=== PATIENT | female | born 1985 | race Caucasian/White ===

== ENCOUNTER 2016-10-03 10:54 | Emergency (ER) | payer SELFPAY ==
--- NOTE | 2016-10-03 11:17 | Emergency Department Record ---
History of Present Illness - General Chief complaint: Hemorrhoids Stated complaint: RECTAL PAIN Time Seen by Provider: 10/03/16 11:16 Source: Patient Mode of Arrival: Ambulatory Limitations: No limitations - History of Present Illness Initial comments: The patient is here due to rectal pain for about a week. She believes she has a large hemorrhoid present which is causing the issue. The patient is 7 months but denies any AP, cramping, or vaginal bleeding. She states the baby is moving normally. MD complaint: Other Onset/Timin -: Days(s) Radiation: None Severity scale (1-10): 10 Quality: Burning Consistency: Constant Improves with: None Worsens with: Bowel movement, Movement Context: Hemorrhoids Treatments Prior to Arrival: Topical ointment - Related Data Home Medications Medication Instructions Recorded Confirmed Last Taken Pnv No.95/Ferrous Fum/Folic AC 1 tab PO DAILY 10/03/16 10/03/16 10/03/16 08:00 [ Formula Tablet] Allergies Allergy/AdvReac Type Severity Reaction Status Date / Time No Known Drug Allergies Allergy Verified 10/03/16 11:14 Travel Screening - Travel/Exposure Within Last 30 Days Have you traveled within the last 30 days?: No - Travel/Exposure Within Last Year Have you traveled outside the [place] in the last year?: No - Travel Symptoms Symptom Screening: Bleeding Review of Systems Constitutional: Denies: Chills, Fever Eyes: Denies: Eye discharge ENT: Denies: Congestion, Other Respiratory: Denies: Cough, Dyspnea Past Medical History - SOCIAL HISTORY Smoking Status: Current every day smoker Alcohol Use: None Drug Use: None - RESPIRATORY Hx Respiratory Disorders: No - CARDIOVASCULAR Hx Cardio Disorders: No - NEURO Hx Neuro Disorders: Yes Comment:: LUPUS - GI Hx GI Disorders: No - Hx Genitourinary Disorders: Yes Hx Kidney Stones: Yes Hx UTI: Yes - ENDOCRINE Hx Endocrine Disorders: No - MUSCULOSKELETAL Hx Musculoskeletal Disorders: Yes Comment:: LUPUS - PSYCH Hx Psych Problems: No - HEMATOLOGY/ONCOLOGY Hx Hematology/Oncology Disorders: No Hx Anemia: Yes Family Medical History Any Significant Family History?: No Physical Exam - General General Appearance: Alert, Oriented x3, Cooperative, No acute distress - Head Head exam: Atraumatic, Normocephalic, Normal inspection - Eye Eye exam: Normal appearance, PERRL - GI/Abdominal GI/Abdominal exam: Soft, Normal bowel sounds. negative: Rebound, Rigid, Tenderness - Rectal Rectal exam: Other (There is a large hemorrhoid present from the 3:00 to 6:00 position. It is partially thrombosed on one end and very soft and pink on the other.) Course Vital Signs 10/03/16 11:05 Temperature 98.5 F Pulse Rate 87 Respiratory 20 Rate Blood Pressure 116/63 Pulse Ox 95 - Reevaluation(s) Reevaluation #1: Due to the fact the patient is 7 months I did contact her OB group in [place]. I did speak with Brittany (OB nurse) who will expedite an appointment for today with the OB group and will call her in some medicine for the hemorrhoid. 10/03/16 11:33 10/03/16 11:59 Disposition Disposition: Discharge Clinical Impression: Hemorrhoid Qualifiers: Hemorrhoid type: other Qualified Code(s): K64.8 - Other hemorrhoids Disposition: Home, Self-Care Condition: (1) Good Instructions: Hemorrhoids (ED) Additional Instructions: Please see your OB doctor MAYRA for this problem. Forms: Patient Portal Access Time of Disposition: 11:36 Quality - Quality Measures Quality Measures: N/A - Blood Pressure Screening View Details: Yes Blood Pressure Classification: Normal BP Reading Systolic Measurement: 116 Diastolic Measurement: 63 Screening for High Blood Pressure: < Normal BP, F/U Not Required > [G8783] Normal BP Follow-up Interventions: No follow-up required
== END 2016-10-03 11:55 | disposition home or self-care (01) ==
LOC: ER 10:54
DX: O22.43 Hemorrhoids in pregnancy, third trimester (principal)
CPT/HCPCS: 99283

== ENCOUNTER 2017-06-27 21:12 | Emergency (ER) | payer SELFPAY ==
[2017-06-27] MEDS ORDERED: CLINDAMYCIN 150 MG CAP PO ONE (21:25)
--- NOTE | 2017-06-27 21:25 | Emergency Department Record ---
History of Present Illness - General Chief complaint: Dental Stated complaint: DENTAL PAIN Time Seen by Provider: 06/27/17 21:20 Source: Patient Mode of Arrival: Ambulatory Limitations: No limitations - History of Present Illness Initial comments: 31 yo female presents to ED for evaluation of right lower dental pain that began 2-3 days ago, reports that woke up this morning with swelling to the lateral lower mandible. Patient reports that she did call her dentist for an appointment next week, but was concerned that she may need an antibiotic for her swelling symptoms. Patient denies health problems at her baseline. MD complaint: Tooth pain Onset/Timin -: Days(s) Location: Tooth # 1 - Several dental caries present Severity: Moderate Quality: Aching Consistency: Constant Improves with: None Worsens with: None Context- Dental: History of dental caries - Related Data Previous Rx's Medication Instructions Recorded Clindamycin HCl 300 mg PO Q6H #27 capsule 06/27/17 Allergies Allergy/AdvReac Type Severity Reaction Status Date / Time No Known Drug Allergies Allergy Verified 10/03/16 11:14 Review of Systems Constitutional: Denies: Chills, Fever, Malaise, Night sweats Eyes: Denies: Eye discharge, Eye pain ENT: Reports: Dental pain. Denies: Congestion, Ear pain Respiratory: Denies: Cough, Dyspnea Cardiovascular: Denies: Chest pain, Dyspnea on exertion Endocrine: Denies: Fatigue, Heat or cold intolerance Gastrointestinal: Denies: Abdominal pain, Nausea, Vomiting Genitourinary: Denies: Incontinence, Retention Musculoskeletal: Denies: Arthralgia, Back pain Skin: Denies: Bruising, Change in color Neurological: Denies: Abnormal gait, Confusion, Headache, Seizure Psychiatric: Denies: Anxiety Hematological/Lymphatic: Denies: Anemia, Blood Clots Past Medical History - SOCIAL HISTORY Smoking Status: Current every day smoker Drug Use: None - RESPIRATORY Hx Respiratory Disorders: No - CARDIOVASCULAR Hx Cardio Disorders: No - NEURO Hx Neuro Disorders: Yes Comment:: LUPUS - GI Hx GI Disorders: No - Hx Genitourinary Disorders: Yes Hx Kidney Stones: Yes Hx UTI: Yes - ENDOCRINE Hx Endocrine Disorders: No - MUSCULOSKELETAL Hx Musculoskeletal Disorders: Yes Comment:: LUPUS - PSYCH Hx Psych Problems: No - HEMATOLOGY/ONCOLOGY Hx Hematology/Oncology Disorders: No Hx Anemia: Yes Physical Exam - General General Appearance: Alert, Oriented x3, Cooperative, Moderate distress Limitations: No limitations - Head Head exam: Atraumatic, Normocephalic, Normal inspection Head exam detail: negative: Abrasion, Contusion, Trimble's sign, General tenderness, Hematoma, Laceration - Eye Eye exam: Normal appearance. negative: Conjunctival injection, Periorbital swelling, Periorbital tenderness, Scleral icterus - ENT Ear exam: negative: Auricular hematoma, Auricular trauma Nasal Exam: negative: Active bleeding, Discharge, Dried blood, Foreign body Mouth exam: negative: Drooling, Laceration, Muffled voice, Tongue elevation Teeth exam: Dental caries, Dental tenderness #, Other Throat exam: negative: Tonsillar erythema, R peritonsillar mass, L peritonsillar mass Image of Mouth/Teeth: 1 - Numerous dental caries present - Neck Neck exam: Normal inspection. negative: Meningismus, Tenderness - Respiratory Respiratory exam: Normal lung sounds bilaterally. negative: Rales, Respiratory distress, Rhonchi, Stridor - Cardiovascular Cardiovascular Exam: Regular rate, Normal rhythm, Normal heart sounds - GI/Abdominal GI/Abdominal exam: Soft. negative: Rebound, Rigid, Tenderness - Rectal Rectal exam: Deferred - exam: Deferred - Extremities Extremities exam: Normal inspection. negative: Pedal edema, Tenderness - Back Back exam: Denies: CVA tenderness (R), CVA tenderness (L) - Neurological Neurological exam: Alert, Normal gait, Oriented X3 - Psychiatric Psychiatric exam: Normal affect, Normal mood - Skin Skin exam: Normal color. negative: Abrasion Type of lesion: negative: abrasion Course Vital Signs 06/27/17 21:16 Temperature 98.7 F Pulse Rate [ 80 Pulse Ox Probe] Respiratory 20 Rate Blood Pressure 121/76 [Left Arm] Pulse Ox 100 - Reevaluation(s) Reevaluation #1: 06/27/17 21:33 Patient was seen and examined, dental block was performed to improve her pain symptoms. Patient was started on Clindamycin as well for probable dental infection, appears stable for discharge at this time. Reevaluation #2: 06/27/17 21:39 Patient reassessed, reports improvment in her pain symptoms following dental block. Patient appears stable for discharge at this time. Procedures - Nerve Block Consent Obtained: Verbal consent Time Out Performed: Yes Local Anesthetic Used: Marcaine 0.25% Amount of anesthesia used: 1.5 Side: Right Intraoral Nerve Block: Inferior alveolar Procedure Successful: Yes Complications: None Patient Tolerated Procedure: Good Disposition Disposition: Discharge Clinical Impression: Dental caries Disposition: Home, Self-Care Condition: (2) Stable Instructions: Dental Abscess (ED) Additional Instructions: Return to ED if your symptoms worsen or if you have any concerns Clindamycin as directed. Follow-up as scheduled with your dentist as scheduled with next week. Prescriptions: Clindamycin HCl 300 mg PO Q6H #27 capsule Forms: Patient Portal Access Time of Disposition: 21:24 Quality - Quality Measures Quality Measures: N/A - Blood Pressure Screening Does Patient Have Any of the Following: No Blood Pressure Classification: Pre-Hypertensive BP Reading Systolic Measurement: 121 Diastolic Measurement: 76 Screening for High Blood Pressure: < Pre-Hypertensive BP, F/U Documented > [ G8950] Pre-Hypertensive Follow-up Interventions: Referral to alternative/primary care provider.
== END 2017-06-27 21:44 | disposition home or self-care (01) ==
LOC: ER 21:12
DX: K02.9 Dental caries, unspecified (principal); F17.210 Nicotine dependence, cigarettes, uncomplicated
CPT/HCPCS: 64400; 99283

== ENCOUNTER 2017-07-22 09:40 | Emergency (ER) | payer SELFPAY ==
[2017-07-22] MEDS ORDERED: ONDANSETRON HCL IV 4 MG/2 ML VIAL IVP ONE (09:55)
[2017-07-22] MEDS ORDERED: 0.9 % SODIUM CHLORIDE 1,000 ML BAG IV ONE (09:55)
[2017-07-22] MEDS ORDERED: ACETAMINOPHEN 1,000 MG/100 ML BTL IVPB ONE (09:55)
[2017-07-22] MEDS ORDERED: KETOROLAC 30 MG/ML VIAL IVP ONE (09:56)
--- NOTE | 2017-07-22 09:57 | Emergency Department Record ---
History of Present Illness - General Chief complaint: Female Urogenital Problem Stated complaint: KIDNEY PAIN Time Seen by Provider: 07/22/17 09:47 Source: Patient Mode of Arrival: Ambulatory Limitations: No limitations - History of Present Illness Initial comments: 32 yo female presents with right flank pain that started this morning at 4: 30am. The pain was sudden onset. The pain is sharp. She has associated nausea and vomiting. No diarrhea. No fevers. No dysuria. She has had renal stones in the past. No symptoms in the last several weeks prior to this AM. She has passed all prior stones. NO abdominal pain currently as the pain is in the back/flank. No vaginal bleeding or discharge. Cycles have been regular. NO pelvic pain. MD Complaint: Other (Right flank pain) Onset/Timin -: Hour(s) Radiation: R flank Severity: Severe Severity scale (1-10): 10 Quality: Sharp Consistency: Constant Improves with: None Worsens with: Urination Patient : No Associated Symptoms: Nausea/vomiting - Related Data Sexually active: No Previous Rx's Medication Instructions Recorded Cephalexin [Keflex] 500 mg PO QID #40 cap 07/22/17 Hydrocodone/Acetaminophen [[place] 1 tab PO Q8H PRN #9 tab 07/22/17 5mg/325mg] Ondansetron [Zofran Odt] 4 mg PO Q8H #20 tab.rapdis 07/22/17 Allergies Allergy/AdvReac Type Severity Reaction Status Date / Time No Known Drug Allergies Allergy Verified 10/03/16 11:14 Travel Screening - Travel/Exposure Within Last 30 Days Have you traveled within the last 30 days?: No Review of Systems Constitutional: Denies: Chills, Fever, Malaise, Weakness Eyes: Denies: Eye discharge ENT: Denies: Congestion, Throat pain Respiratory: Denies: Cough, Dyspnea, Hemoptysis, Stridor, Wheezes Cardiovascular: Denies: Chest pain, Palpitations, Syncope Endocrine: Denies: Fatigue Gastrointestinal: Reports: Nausea, Vomiting. Denies: Abdominal pain, Constipation, Diarrhea, Hematemesis, Hematochezia, Melena Genitourinary: Denies: Dysuria, Hematuria Musculoskeletal: Reports: Back pain. Denies: Arthralgia, Joint swelling, Myalgia, Neck pain Skin: Denies: Bruising, Change in color, Rash Neurological: Denies: Headache, Numbness, Weakness Psychiatric: Denies: Anxiety Hematological/Lymphatic: Denies: Easy bleeding, Easy bruising, Swollen glands Past Medical History - SOCIAL HISTORY Smoking Status: Former smoker Alcohol Use: None Drug Use: None - RESPIRATORY Hx Respiratory Disorders: No - CARDIOVASCULAR Hx Cardio Disorders: No - NEURO Hx Neuro Disorders: Yes Comment:: LUPUS - GI Hx GI Disorders: No - Hx Genitourinary Disorders: Yes Hx Kidney Stones: Yes Hx UTI: Yes - ENDOCRINE Hx Endocrine Disorders: No - MUSCULOSKELETAL Hx Musculoskeletal Disorders: Yes Comment:: LUPUS - PSYCH Hx Psych Problems: No - HEMATOLOGY/ONCOLOGY Hx Hematology/Oncology Disorders: Yes Hx Anemia: Yes Family Medical History Any Significant Family History?: No Physical Exam - General General Appearance: Alert, Oriented x3, Cooperative, No acute distress Limitations: No limitations - Head Head exam: Normal inspection - Eye Eye exam: Normal appearance, PERRL. negative: Conjunctival injection, Scleral icterus - ENT ENT exam: Normal exam, Mucous membranes moist Ear exam: Normal external inspection Nasal Exam: Normal inspection Mouth exam: Normal external inspection Teeth exam: Normal inspection Throat exam: Normal inspection - Neck Neck exam: Normal inspection, Full ROM. negative: Tenderness - Respiratory Respiratory exam: Normal lung sounds bilaterally. negative: Respiratory distress - Cardiovascular Cardiovascular Exam: Regular rate, Normal rhythm, Normal heart sounds - GI/Abdominal GI/Abdominal exam: Soft. negative: Distended, Guarding, Rebound, Rigid, Tenderness - Rectal Rectal exam: Deferred - exam: Deferred - Extremities Extremities exam: Normal inspection, Full ROM, Normal capillary refill. negative: Tenderness - Back Back exam: Reports: Normal inspection, CVA tenderness (R), Full ROM, Tenderness. Denies: CVA tenderness (L) - Neurological Neurological exam: Alert, Normal gait, Oriented X3 - Psychiatric Psychiatric exam: Normal affect, Normal mood - Skin Skin exam: Dry, Intact, Normal color, Warm Course Vital Signs 07/22/17 09:42 Temperature 98.7 F Pulse Rate 95 H Respiratory 20 Rate Blood Pressure 99/50 Pulse Ox 99 - Reevaluation(s) Reevaluation #1: 07/22/17 10:57 The labs were reviewed The WBC is 13 The UA is consistent with UTI The UCG is POSITIVE. Quant ordered CT changed to US. 07/22/17 11:32 The Quant is 250 The patient is not having any pelvic pain, no discharge, no vaginal bleeding. Her pain is isolated to the the right flank. Low suspicion of ectopic given no current or historic pelvic symptoms. She confirms she has not been irregular and her last period last week was normal without atypical features. 07/22/17 13:14 The renal US is negative. No hydo. 07/22/17 13:42 The OB US was negative for IUP. Small right cyst likely corpus luteal. No IUP expected given Quant 230. Low suspicion for ectopic but still possible. The patient was made aware of the need to see her doctors at the [facility] in [place] for a recheck HCG and check for this early and to follow up the culture. I explained this could be a miscarriage, normal or ectopic. I explained the rational for 48-72 hour recheck HCG 07/22/17 14:37 Medical Decision Making - Lab Data Result diagrams: 07/22/17 10:10 07/22/17 10:10 Disposition Disposition: Discharge Clinical Impression: Pyelonephritis, Disposition: Home, Self-Care Condition: (1) Good Instructions: (ED), Urinary Tract Infection in Women (ED), Kidney Infection (ED) Additional Instructions: Rest and stay well hydrated Take the antibiotics as directed Return if you have fever, uncontrolled pain, or any new concerns. You have a culture of the urine that will be available in about 2 days Call the [facility] to be seen this week to recheck your hormone level. Prescriptions: Cephalexin [Keflex] 500 mg PO QID #40 cap Hydrocodone/Acetaminophen [[place] 5mg/325mg] 1 tab PO Q8H PRN #9 tab PRN Reason: Pain - General Ondansetron [Zofran Odt] 4 mg PO Q8H #20 tab.rapdis Forms: Patient Portal Access Time of Disposition: 13:18 Quality - Quality Measures Quality Measures: N/A - Blood Pressure Screening Does Patient Have Any of the Following: No Blood Pressure Classification: Normal BP Reading Systolic Measurement: 95 Diastolic Measurement: 55 Screening for High Blood Pressure: < Normal BP, F/U Not Required > [G8783]
[2017-07-22 10:17] LABS: HEMATOCRIT 40.5 % (35.0-47.0); HEMOGLOBIN 13.1 gm/dl (11.6-16.0); MEAN CELL VOLUME 91.8 fl (81-97); MEAN CORPUSCULAR HEMOGLOBIN 29.7 pg (27-33); MEAN CORPUSCULAR HGB CONC 32.3 g/dl (32-36); MEAN PLATELET VOLUME 9.1 fl (7.4-10.4); PLATELET COUNT 251 K/uL (130-400); RED BLOOD COUNT 4.41 M/uL (3.80-5.40); RED CELL DISTRIBUTION WIDTH 13.6 % (11.5-14.5)
[2017-07-22 10:27] LABS: PLATELET ESTIMATE NORMAL (NORMAL)
[2017-07-22 10:43] LABS: ALB/GLOB RATIO 1.4 (1.1-1.8); ALBUMIN 3.8 g/dL (4.0-5.0); ALKALINE PHOSPHATASE 67 U/L (35-104); ALT/SGPT 11 U/L (<33); AST/SGOT 12 U/L (10.0-35.0); BLOOD UREA NITROGEN 11 mg/dL (6-20); CREATININE 0.6 mg/dL (0.5-0.9); EST GLOMERULAR FILTRATION RATE > 60 mL/min; GLUCOSE,RANDOM 128 mg/dL (74-109); TOTAL PROTEIN 6.6 g/dL (6.6-8.7)
[2017-07-22 10:45] LABS: URINE APPEARANCE SL CLOUDY; URINE BILIRUBIN NEGATIVE (NEGATIVE); URINE BLOOD MODERATE (NEGATIVE); URINE COLOR YELLOW; URINE GLUCOSE (UA) NEGATIVE (NEGATIVE); URINE KETONE NEGATIVE (NEGATIVE); URINE LEUKOCYTE ESTERASE SMALL (NEGATIVE); URINE NITRITE POSITIVE (NEGATIVE); URINE PROTEIN NEGATIVE (NEGATIVE); URINE UROBILINOGEN 0.2 E.U./dL (0.20 - 1.00)
[2017-07-22 10:49] LABS: HCG,QUALITATIVE URINE POSITIVE (NEGATIVE); URINE BACTERIA 4+; URINE EPITHELIAL CELLS 0 - 2 (FEW); URINE WBC 16 - 20 (0-2/hpf)
[2017-07-22] MEDS ORDERED: CEFTRIAXONE SODIUM 1 GM in 0.9 % SODIUM CHLORIDE 100ML 100 ML IVPB ONE (10:53)
[2017-07-22] MEDS ORDERED: MORPHINE SULFATE 4MG/ML PREFILLED SYRINGE IVP ONE (10:56)
--- NOTE | 2017-07-24 08:39 | ULTRASOUND REPORT ---
EXAM: RENAL/RETROPERITONEAL ULTRASOUND HISTORY: POSITIVE TEST, FLANK PAIN. TECHNIQUE: Real-time ultrasound examination of the kidneys was performed. The bladder was included in the obstetrical ultrasound from today as well. Comparison: No prior renal ultrasound. FINDINGS: The right kidney measures about 11.9 cm in length and the left kidney measures about 11.3 cm in length. No hydronephrosis identified in either kidney. No definite abnormality of either kidney identified. IMPRESSION: THE KIDNEYS APPEAR ESSENTIALLY NEGATIVE BILATERALLY WITH NO DEFINITE HYDRONEPHROSIS IDENTIFIED. JOB NUMBER: [id number] [facility]
--- NOTE | 2017-07-24 09:12 | ULTRASOUND REPORT ---
EXAM: FIRST TRIMESTER EMERGENCY ULTRASOUND HISTORY: RIGHT FLANK PAIN, NEW DIAGNOSIS OF . TECHNIQUE: Real-time ultrasound examination of the pelvis was performed utilizing transabdominal and transvaginal. Because of pain, Doppler ultrasound was performed with color flow and spectral analysis. Comparison: None. FINDINGS: TRANSABDOMINAL OB ULTRASOUND: The uterus is identified measuring about 4.1 cm in AP x 5.7 cm in transverse diameters x 8.3 cm in length. No intrauterine fluid collection identified and in particular no recognizable intrauterine gestational sac, pole, or yolk sac evident. On the longitudinal image the endometrial stripe measures about 6 mm in thickness. The left ovary is identified measuring about 3.6 cm in size and demonstrating arterial and venous flow with color flow and spectral analysis Doppler. The right ovary is identified measuring 4.3 cm in size and also demonstrating flow with arterial and venous Doppler ultrasound. No definite adnexal mass seen on either side on the transabdominal approach and no free fluid evident. The urinary bladder was also briefly evaluated at the time of the transabdominal approach. The prevoid bladder volume was about 227 ml. Mild diffuse thick walled appearance of the bladder may simply be due to incomplete distention. There do appear to be some low amplitude echoes within the urinary bladder which is nonspecific. No focal bladder wall abnormality identified. No post void images were obtained. TRANSVAGINAL OB ULTRASOUND: Because no recognizable intrauterine fetus was seen on the transabdominal approach, transvaginal study was also performed. There are a couple tiny cervical nabothian cysts less than 1 cm in size. A very tiny amount of free fluid in the pelvis in the cul-de-sac may simply be physiologic in nature. The endometrial stripe measured about 5.3 mm in thickness, within normal limits. Again, no recognizable intrauterine gestational sac, pole, or yolk sac evident. The left ovary is identified measuring 2.6 cm in size and demonstrating arterial and venous flow with color flow and spectral analysis Doppler. The right ovary is identified measuring about 4.6 cm in size and is dominated by a cyst measuring about 3.2 cm in size. This is nonspecific although may be a corpus luteum cyst. Arterial and venous flow evident in the right ovary as well with color flow and spectral analysis Doppler. Findings are nonspecific at this point. There is no history of bleeding to indicate incomplete spontaneous . This may just represent a very early not yet sonographically visible, however, with the history of a positive test and lack of demonstration of an IUP, ectopic cannot absolutely be excluded. Consequently close clinical follow-up is suggested, perhaps with quantitative serum HCG determinations, and if the patient remains clinically and stable, follow-up transvaginal ultrasound in a week or so may be useful to reassess. IMPRESSION: 1. NO INTRAUTERINE GESTATIONAL SAC IDENTIFIED. 2. SMALL CERVICAL NABOTHIAN CYSTS. 3. APPROXIMATELY 3.2 CM CYST RIGHT OVARY, NONSPECIFIC, ALTHOUGH PERHAPS A CORPUS LUTEUM CYST. 4. TINY AMOUNT OF FREE FLUID MAY SIMPLY BE PHYSIOLOGIC. 5. FINDINGS ARE NONSPECIFIC AND FURTHER EVALUATION DESCRIBED ABOVE SUGGESTED. JOB NUMBER: [id number]
== END 2017-07-22 13:55 | disposition home or self-care (01) ==
LOC: ER 09:40
DX: O23.01 Infections of kidney in pregnancy, first trimester (principal); R11.2 Nausea with vomiting, unspecified; Z87.891 Personal history of nicotine dependence
CPT/HCPCS: 99284 ×2; 96365; 96375; 84702; 80053; 81001; 81025; 85027; 76775; 76817; 76801; J1885; J2405; J2274; J7030

== ENCOUNTER 2017-08-16 11:16 | Emergency (ER) | payer SELFPAY ==
[2017-08-16] MEDS ORDERED: 0.9 % SODIUM CHLORIDE 1,000 ML BAG IV ONE (11:25)
[2017-08-16] MEDS ORDERED: ONDANSETRON HCL IV 4 MG/2 ML VIAL IVP ONE (11:25)
--- NOTE | 2017-08-16 11:30 | Emergency Department Record ---
History of Present Illness - General Chief complaint: Weakness Stated complaint: STOMACH ACHE/DEHYDRATED Time Seen by Provider: 08/16/17 11:24 Source: Patient Mode of Arrival: Ambulatory Limitations: No limitations - History of Present Illness Initial comments: 32 yo female presents with one week of feeling weak, nausea, dizziness, decreased appetite. No fevers or chills. No vomiting but nausea. She is trying to drink fluids but food is not appetizing. No abdominal pain. She has had her gall bladder removed. No cough or chest pain. No dysuria. She reports she has had episodes like this several times in the past. MD Complaint: Generalized weakness -: Days(s) (5) Location: Generalized Severity: Moderate Quality: Other Consistency: Constant Improves with: None Worsens with: Other (Eating) Context: History of similar Associated Symptoms: Loss of appetite - Ajo Coma Scale Eye Response: (4) Open spontaneously Motor Response: (6) Obeys commands Verbal Response: (5) Oriented Ajo Total: 15 - Related Data Previous Rx's Medication Instructions Recorded Hydrocodone/Acetaminophen [Bruce 1 tab PO Q8H PRN #9 tab 07/22/17 5mg/325mg] Cephalexin [Keflex] 500 mg PO QID #28 cap 08/16/17 Ondansetron [Zofran Odt] 4 mg PO Q8H #10 tab.rapdis 08/16/17 Allergies Allergy/AdvReac Type Severity Reaction Status Date / Time No Known Drug Allergies Allergy Verified 08/16/17 11:28 Review of Systems Constitutional: Reports: Malaise, Weakness. Denies: Chills, Fever Eyes: Denies: Eye discharge, Eye pain, Photophobia, Vision change ENT: Denies: Congestion, Epistaxis, Throat pain Respiratory: Denies: Cough, Dyspnea, Hemoptysis, Wheezes Cardiovascular: Denies: Chest pain, Edema, Palpitations, Syncope Endocrine: Reports: Fatigue Gastrointestinal: Reports: Nausea. Denies: Abdominal pain, Constipation, Diarrhea, Hematemesis, Hematochezia, Melena, Vomiting Genitourinary: Denies: Dysuria, Urgency Musculoskeletal: Denies: Arthralgia, Back pain, Myalgia Skin: Denies: Bruising, Change in color, Rash Neurological: Reports: Vertigo, Weakness. Denies: Abnormal gait, Confusion, Headache, Numbness, Paresthesias, Seizure, Tingling, Tremors Psychiatric: Denies: Anxiety Hematological/Lymphatic: Denies: Easy bleeding, Easy bruising Past Medical History - SOCIAL HISTORY Smoking Status: Former smoker Drug Use: None - RESPIRATORY Hx Respiratory Disorders: No - CARDIOVASCULAR Hx Cardio Disorders: No - NEURO Hx Neuro Disorders: Yes Comment:: LUPUS - GI Hx GI Disorders: No - Hx Genitourinary Disorders: Yes Hx Kidney Stones: Yes Hx UTI: Yes - ENDOCRINE Hx Endocrine Disorders: No - MUSCULOSKELETAL Hx Musculoskeletal Disorders: Yes Comment:: LUPUS - PSYCH Hx Psych Problems: No - HEMATOLOGY/ONCOLOGY Hx Hematology/Oncology Disorders: Yes Hx Anemia: Yes Physical Exam - General General Appearance: Alert, Oriented x3, Cooperative, No acute distress Limitations: No limitations - Head Head exam: Normal inspection - Eye Eye exam: Normal appearance, PERRL. negative: Conjunctival injection, Scleral icterus - ENT ENT exam: Normal exam, Mucous membranes moist Ear exam: Normal external inspection Nasal Exam: Normal inspection Mouth exam: Normal external inspection Teeth exam: Normal inspection Throat exam: Normal inspection. negative: Tonsillar erythema, Tonsillomegaly, Tonsillar exudate, R peritonsillar mass, L peritonsillar mass - Neck Neck exam: Normal inspection, Full ROM. negative: Tenderness - Respiratory Respiratory exam: Normal lung sounds bilaterally. negative: Respiratory distress, Wheezes - Cardiovascular Cardiovascular Exam: Regular rate, Normal rhythm, Normal heart sounds - GI/Abdominal GI/Abdominal exam: Soft. negative: Tenderness - Rectal Rectal exam: Deferred - exam: Deferred - Extremities Extremities exam: Normal inspection. negative: Pedal edema - Back Back exam: Reports: Normal inspection, Full ROM. Denies: Muscle spasm, Rash noted, Tenderness - Neurological Neurological exam: Alert, CN II-XII intact, Normal gait, Oriented X3. negative : Abnormal gait, Altered, Motor sensory deficit - Psychiatric Psychiatric exam: Normal affect, Normal mood. negative: Agitated, Anxious - Skin Skin exam: Dry, Intact, Normal color, Warm Course - Reevaluation(s) Reevaluation #1: 08/16/17 12:09 The UA is consistent with UTI with N+, LE+, WBC's and Bacteria HCG is negative. 08/16/17 12:21 No acute changes on the CBC or BMP Medical Decision Making - Lab Data Result diagrams: 08/16/17 11:47 08/16/17 11:47 Disposition Disposition: Discharge Clinical Impression: Urinary tract infection, Dehydration Disposition: Home, Self-Care Condition: (1) Good Instructions: Urinary Tract Infection in Women (ED), Hypokalemia (ED) Additional Instructions: Eat foods with potassium the next few days Take the antibiotics as directed Return or be seen if worse, fever, vomiting or concerns Rest and stay well hydrated Prescriptions: Cephalexin [Keflex] 500 mg PO QID #28 cap Ondansetron [Zofran Odt] 4 mg PO Q8H #10 tab.rapdis Forms: Patient Portal Access Quality - Quality Measures Quality Measures: N/A - Blood Pressure Screening Does Patient Have Any of the Following: No Blood Pressure Classification: Normal BP Reading Systolic Measurement: 110 Diastolic Measurement: 71 Screening for High Blood Pressure: < Normal BP, F/U Not Required > [G8783]
[2017-08-16 11:56] LABS: HEMATOCRIT 37.6 % (35.0-47.0); HEMOGLOBIN 12.2 gm/dl (11.6-16.0); MEAN CELL VOLUME 90.6 fl (81-97); MEAN CORPUSCULAR HEMOGLOBIN 29.4 pg (27-33); MEAN CORPUSCULAR HGB CONC 32.4 g/dl (32-36); MEAN PLATELET VOLUME 9.8 fl (7.4-10.4); PLATELET COUNT 121 K/uL (130-400); RED BLOOD COUNT 4.15 M/uL (3.80-5.40); RED CELL DISTRIBUTION WIDTH 13.2 % (11.5-14.5); URINE APPEARANCE SL CLOUDY; URINE BILIRUBIN NEGATIVE (NEGATIVE); URINE BLOOD MODERATE (NEGATIVE); URINE COLOR YELLOW; URINE GLUCOSE (UA) NEGATIVE (NEGATIVE); URINE KETONE TRACE (NEGATIVE); URINE LEUKOCYTE ESTERASE LARGE (NEGATIVE); URINE NITRITE POSITIVE (NEGATIVE); WHITE BLOOD COUNT W/O DIFF 10.9 K/uL (4.2-12.2)
[2017-08-16] MEDS ORDERED: CEFTRIAXONE SODIUM 1 GM in 0.9 % SODIUM CHLORIDE 100ML 100 ML IVPB ONE (12:04)
[2017-08-16 12:06] LABS: URINE BACTERIA 4+; URINE RBC 16 - 25 (NONE SEEN)
[2017-08-16 12:11] LABS: BLOOD UREA NITROGEN 7 mg/dL (6-20); CREATININE 0.6 mg/dL (0.5-0.9); EST GLOMERULAR FILTRATION RATE > 60 mL/min
[2017-08-16 12:12] LABS: TOTAL PROTEIN 7.4 g/dL (6.6-8.7)
[2017-08-16 12:14] LABS: GLUCOSE,RANDOM 96 mg/dL (74-109)
[2017-08-16 12:17] LABS: ALBUMIN 3.7 g/dL (4.0-5.0); ALKALINE PHOSPHATASE 84 U/L (35-104); ALT/SGPT 21 U/L (<33); AST/SGOT 22 U/L (10.0-35.0)
[2017-08-16 12:27] LABS: THYROID STIMULATING HORMONE 1.22 uIU/mL (0.270-4.20)
[2017-08-16] MEDS ORDERED: POTASSIUM BICARB./CIT AC 25 MEQ EFF.TAB PO STA (12:36)
== END 2017-08-16 13:17 | disposition home or self-care (01) ==
LOC: ER 11:16
DX: N39.0 Urinary tract infection, site not specified (principal); E86.0 Dehydration; R31.29 Other microscopic hematuria; R53.1 Weakness; R11.0 Nausea; R42 Dizziness and giddiness; Z87.891 Personal history of nicotine dependence
CPT/HCPCS: 99284 ×2; 96365; 96375; 80053; 81001; 84443; 81025; 85027; J2405; J7030

== ENCOUNTER 2018-01-30 20:27 | Emergency (ER) | payer SELFPAY ==
[2018-01-30] MEDS ORDERED: ONDANSETRON HCL IV 4 MG/2 ML VIAL IV ONE (20:45)
[2018-01-30] MEDS ORDERED: MORPHINE SULFATE 10 MG/ML VIAL IVP ONE (20:45)
[2018-01-30] MEDS ORDERED: SODIUM CHLORIDE 0.9% 500 ML IV ONE (20:45)
--- NOTE | 2018-01-30 20:48 | Emergency Department Record ---
History of Present Illness - General Chief Complaint: Abdominal Pain Stated Complaint: ABD PAIN Time Seen by Provider: 01/30/18 20:34 Source: Patient Mode of Arrival: Ambulatory Limitations: No limitations - History of Present Illness Initial Comments: The patient is here due to a 2 day hx of LLQ AP. The pain was mild initially but has been worsening over the last day. She has had some nausea but no vomiting, diarrhea, fever, dysuria, or any vaginal bleeding. The patient states her LMP was about 5 weeks ago and she has had 2 positive home preg tests. MD Complaint: Abdominal pain Onset/Timin -: Days(s) Location: Suprapubic, LLQ Severity scale (1-10): 7 Quality: Cramping, Sharp Consistency: Constant, Getting worse Improves With: Rest Worsens With: Movement Associated Symptoms: Nausea - Related Data LMP (females 10-50): 1 month ago Patient : Yes Home Medications Medication Instructions Recorded Confirmed Last Taken No Home Med [NO HOME MEDS] 01/30/18 01/30/18 Unknown Allergies Allergy/AdvReac Type Severity Reaction Status Date / Time No Known Drug Allergies Allergy Verified 08/16/17 11:28 Travel Screening - Travel/Exposure Within Last 30 Days Have you traveled within the last 30 days?: No - Travel Symptoms Symptom Screening: None Review of Systems Constitutional: Denies: Chills, Fever Eyes: Denies: Eye discharge ENT: Denies: Congestion Respiratory: Denies: Cough, Dyspnea Past Medical History - SOCIAL HISTORY Smoking Status: Former smoker - [employer] History : 6 Para: 3 A: 2 - RESPIRATORY Hx Respiratory Disorders: No - CARDIOVASCULAR Hx Cardio Disorders: No - NEURO Hx Neuro Disorders: Yes Comment:: LUPUS - GI Hx GI Disorders: No - Hx Genitourinary Disorders: Yes Hx Kidney Stones: Yes Hx UTI: Yes Comment:: 2 previous miscarriages - ENDOCRINE Hx Endocrine Disorders: No - MUSCULOSKELETAL Hx Musculoskeletal Disorders: Yes Comment:: LUPUS - PSYCH Hx Psych Problems: No - HEMATOLOGY/ONCOLOGY Hx Hematology/Oncology Disorders: Yes Hx Anemia: Yes Family Medical History Any Significant Family History?: Yes Hx Cancer: Father, Mother, Brother/Sister, Grandparents Hx Diabetes: Mother Hx Heart Disease: Mother Hx HTN: Mother Hx Kidney Disease: Father Physical Exam - General General Appearance: Alert, Oriented x3, Cooperative, No acute distress - Head Head exam: Atraumatic, Normocephalic - Eye Eye exam: Normal appearance, PERRL - Neck Neck exam: Normal inspection - Respiratory Respiratory exam: Normal lung sounds bilaterally. negative: Respiratory distress - Cardiovascular Cardiovascular Exam: Regular rate, Normal rhythm, Normal heart sounds - GI/Abdominal GI/Abdominal exam: Soft, Normal bowel sounds, Tenderness (There is significant LLQ and suprapubic tenderness.). negative: Rebound, Rigid - Extremities Extremities exam: Normal inspection, Full ROM, Normal capillary refill. negative: Tenderness Course Vital Signs 01/30/18 20:33 Temperature 98.4 F Pulse Rate 102 H Respiratory 20 Rate Blood Pressure 110/67 Pulse Ox 97 - Reevaluation(s) Reevaluation #1: The patient is doing better at this time with much less pain and no nausea or vomiting. I did discuss the issues with the patient and since we have no US she will need to be transferred to another hospital for the test. Her OB doctor is in [place] at [facility] so she would like to go there. I did discuss the case with Dr. Clifford in the ED in [place] and he does accept the patient for transfer. 01/30/18 21:36 Medical Decision Making - Lab Data Result diagrams: 01/30/18 20:43 01/30/18 20:43 Disposition Disposition: Transfer Clinical Impression: Pelvic pain Disposition: Acute Care Hospital Transfer Transfer To: [facility] Reason For Transfer: OB Accepting Physician: Venessa Time Discussed w/Accepting Physician: 21:38 Condition: (2) Stable Instructions: Abdominal Pain (ED) Additional Instructions: Please proceed directly to the ER at [place] for further testing and monitoring. Do not eat or drink on the way. Forms: Patient Portal Access Time of Disposition: 21:38 Quality - Quality Measures Quality Measures: N/A - Blood Pressure Screening View Details: Yes Does Patient Have Any of the Following: No Blood Pressure Classification: Normal BP Reading Systolic Measurement: 101 Diastolic Measurement: 54 Screening for High Blood Pressure: < Normal BP, F/U Not Required > [G8783]
[2018-01-30 20:50] LABS: URINE APPEARANCE CLOUDY; URINE BILIRUBIN NEGATIVE (NEGATIVE); URINE BLOOD MODERATE (NEGATIVE); URINE COLOR YELLOW; URINE GLUCOSE (UA) NEGATIVE (NEGATIVE); URINE KETONE NEGATIVE (NEGATIVE); URINE LEUKOCYTE ESTERASE MODERATE (NEGATIVE); URINE NITRITE POSITIVE (NEGATIVE); URINE PROTEIN TRACE (NEGATIVE)
[2018-01-30 20:55] LABS: BASO % 0.1 % (0-6); EOS % 1.9 % (0-6); GRAN % 79.6 % (47-80); HEMATOCRIT 38.7 % (35.0-47.0); HEMOGLOBIN 12.8 gm/dl (11.6-16.0); LYMPH % 12.9 % (16-45); MEAN CELL VOLUME 90.6 fl (81-97); MEAN CORPUSCULAR HGB CONC 33.1 g/dl (32-36); MEAN PLATELET VOLUME 9.3 fl (7.4-10.4); MONO % 5.5 % (0-9); PLATELET COUNT 212 K/uL (130-400); RED BLOOD COUNT 4.27 M/uL (3.80-5.40); RED CELL DISTRIBUTION WIDTH 13.1 % (11.5-14.5); WHITE BLOOD COUNT W/O DIFF 13.8 K/uL (4.2-12.2)
[2018-01-30 21:03] LABS: URINE BACTERIA 4+; URINE RBC 16 - 25 (NONE SEEN)
[2018-01-30 21:10] LABS: BLOOD UREA NITROGEN 11 mg/dL (6-20)
[2018-01-30 21:11] LABS: CREATININE 0.5 mg/dL (0.5-0.9); EST GLOMERULAR FILTRATION RATE > 60 mL/min; TOTAL PROTEIN 6.5 g/dL (6.6-8.7)
[2018-01-30] MEDS ORDERED: CEFTRIAXONE SODIUM 1 GM in 0.9 % SODIUM CHLORIDE 100ML 100 ML IVPB ONE (21:11)
[2018-01-30 21:13] LABS: GLUCOSE,RANDOM 92 mg/dL (74-109)
[2018-01-30 21:16] LABS: ALBUMIN 3.7 g/dL (4.0-5.0); ALKALINE PHOSPHATASE 63 U/L (35-104); ALT/SGPT 18 U/L (<33); AST/SGOT 15 U/L (10.0-35.0); LIPASE 23 U/L (13-60)
[2018-01-30 21:20] LABS: BILIRUBIN,DIRECT < 0.2 mg/dL (0-0.3)
== END 2018-01-30 21:54 | disposition short-term general hospital (02) ==
LOC: ER 20:27
DX: O26.891 Other specified pregnancy related conditions, first trimester (principal); R10.2 Pelvic and perineal pain; R10.32 Left lower quadrant pain; R11.0 Nausea; R82.90 Unspecified abnormal findings in urine; Z87.891 Personal history of nicotine dependence
CPT/HCPCS: 99284 ×2; 96365; 96375; 83690; 85025; 80076; 84702; 80048; 81001; 81025; J2405; J2270